=== PATIENT | male | born 1965 | race Caucasian/White ===

== ENCOUNTER 2017-11-24 08:55 | Emergency (ER) | payer MEDICAID ==
[2017-11-24 09:10] VITALS: BP 127/75
[2017-11-24] MEDS ORDERED: Bacitracin Oint 1 GM U/D Packet TOP ONE (09:18)
--- NOTE | 2017-11-24 10:09 | EDM.PDOC ---
ED HPI GENERAL MEDICAL PROBLEM - General Chief Complaint: Laceration Stated Complaint: DOG BITE ON LEFT ARM Time Seen by Provider: 11/24/17 09:30 Source of Information: Reports: Patient History Limitations: Reports: No Limitations - History of Present Illness INITIAL COMMENTS - FREE TEXT/NARRATIVE: 52-year-old male sustained a dog bite to the left arm. No other injury. Onset: Today, Sudden Duration: Hour(s): (Within the last hour) Location: Reports: Upper Extremity, Left Severity: Moderate Associated Symptoms: Reports: No Other Symptoms Left Arm Pain Score (Numeric/FACES): 2 - Related Data Allergies Allergy/AdvReac Type Severity Reaction Status Date / Time No Known Allergies Allergy Verified 11/24/17 09:11 Home Meds: Home Meds Cyclobenzaprine [Flexeril] 10 mg PO BID PRN 08/27/15 [History] Hydrocodone/Acetaminophen [Hydrocodon-Acetaminophn 10-325] 1 tab PO ASDIRECTED PRN 08/27/15 [History] Past Medical History Cardiovascular History: Reports: Hypertension Musculoskeletal History: Reports: Arthritis, Fracture Other Musculoskeletal History: sciatic - Infectious Disease History Infectious Disease History: Reports: Chicken Pox - Past Surgical History HEENT Surgical History: Reports: LASIK Musculoskeletal Surgical History: Reports: Other (See Below) Other Musculoskeletal Surgeries/Procedures:: removed chips out of elbow,. fracture repair of the tibia Social & Family History - Tobacco Use Smoking Status *Q: Light Tobacco Smoker Years of Tobacco use: 40 Packs/Tins Daily: 0.5 - Recreational Drug Use Recreational Drug Use: Yes Recreational Drug Type: Reports: Marijuana/Hashish Recreational Drug Use Frequency: Not Used In Over 6 Months ED ROS GENERAL - Review of Systems Review Of Systems: See Below Constitutional: Denies: Fever Respiratory: Denies: Shortness of Breath GI/Abdominal: Denies: Nausea, Vomiting Neurological: Denies: Headache Psychiatric: Denies: Anxiety ED EXAM, SKIN/RASH Exam: See Below Exam Limited By: No Limitations General Appearance: Alert, No Apparent Distress Respiratory/Chest: No Respiratory Distress Cardiovascular: Regular Rate, Rhythm Extremities: Other (Exam is otherwise limited to the left arm. He has a transverse 7 cm laceration across the flexor surface of the left forearm just distal to the elbow.) Neurological: Alert, Oriented, No Motor/Sensory Deficits, Other (No distal numbness) Psychiatric: Normal Affect, Normal Mood Course - Vital Signs Last Recorded V/S: Last Vital Signs Temp 97.3 F 11/24/17 09:10 Pulse 87 11/24/17 09:10 Resp 18 11/24/17 09:10 BP 127/75 11/24/17 09:10 Pulse Ox 93 L 11/24/17 09:10 - Orders/Labs/Meds Meds: Medications Discontinued Medications Generic Name Dose Route Start Last Admin Trade Name Steve PRN Reason Stop Dose Admin Bacitracin 1 dose 11/24/17 09:18 11/24/17 09:31 Bacitracin Oint 1 Gm TOP 11/24/17 09:19 1 dose ONETIME ONE Administration Lidocaine HCl 5 ml 11/24/17 09:18 11/24/17 09:31 Xylocaine-Mpf 1% INJECT 11/24/17 09:19 5 ml ONETIME ONE Administration - Re-Assessments/Exams Free Text/Narrative Re-Assessment/Exam: 11/24/17 10:05 The wound was anesthetized with 1% lidocaine and thoroughly cleaned with saline. After anesthesia was then explored and found to be deeper than initially thought. The wound actually extends down to the muscle fascia into the muscle. There is no limitation however in the strength or function of the hand area and no ligamentous or nerve injury. After cleaning the wound 4-0 Vicryl sutures were used to close the fascia above the muscle, then 5 additional Vicryl sutures were used to close the subcutaneous tissue. 8 external 4-0 Ethilon sutures were used to close the laceration. Topical bacitracin and a pressure dressing was applied. He was placed on Augmentin 875 mg twice a day for the next 10 days and sutures can be removed in 9 days. Departure - Departure Time of Disposition: 10:15 Disposition: Home, Self-Care 01 Condition: Good Clinical Impression: Laceration of left arm with complication Qualifiers: Encounter type: initial encounter Qualified Code(s): S41.112A - Laceration without foreign body of left upper arm, initial encounter - Discharge Information Instructions: Laceration Care, Adult Referrals: Sony Garcia MD [Primary Care Provider] - Forms: ED Department Discharge Care Plan Goals: Take antibiotic with food twice a day until gone. Keep wound covered and clean while healing, and continue activity as tolerated. Sutures can be removed in 11 days, the morning of December 04. Recheck sooner if concerns of infection or not healing satisfactorily.
== END 2017-11-24 10:16 | disposition home or self-care (01) ==
LOC: JP.ED 08:55
DX: S41.112A Laceration without foreign body of left upper arm, initial encounter (principal); I10 Essential (primary) hypertension; F17.210 Nicotine dependence, cigarettes, uncomplicated; W54.0XXA Bitten by dog, initial encounter
CPT/HCPCS: 12032; 13121; 99283-25

== ENCOUNTER 2019-04-05 19:32 | Emergency (ER) | payer MEDICAID ==
[2019-04-05 19:49] VITALS: BP 146/94; PULSE 124
--- NOTE | 2019-04-05 20:18 | EDM.PDOC ---
ED HPI GENERAL MEDICAL PROBLEM - General Chief Complaint: ENT Problem Stated Complaint: toothache Time Seen by Provider: 04/05/19 20:09 Source of Information: Reports: Patient History Limitations: Reports: No Limitations - History of Present Illness INITIAL COMMENTS - FREE TEXT/NARRATIVE: Patient presents for evaluation of upper jaw/tooth pain and swelling just come on in the last 24?48 hours. He is concerned that he had some type of dental abscess as they have happened before. One of his teeth is severely eroded beneath the gum line but each to on either side of that one as well as the gums in that area are very uncomfortable. He is noticed swelling of his left cheek which developed today as well. He is hoping to get antibiotics initiated so he can follow up with his dentist next week. Onset: Gradual Duration: Day(s): (one), Constant Quality: Reports: Ache, Burning Severity: Moderate Improves with: Reports: None Worsens with: Reports: Eating left tooth Pain Score (Numeric/FACES): 8 - Related Data Allergies Allergy/AdvReac Type Severity Reaction Status Date / Time No Known Allergies Allergy Verified 04/05/19 19:51 Home Meds: Home Meds Cyclobenzaprine [Flexeril] 10 mg PO BID PRN 08/27/15 [History] Hydrocodone/Acetaminophen [Hydrocodon-Acetaminophn 10-325] 1 tab PO QID [History] Past Medical History Cardiovascular History: Reports: Hypertension Musculoskeletal History: Reports: Arthritis, Fracture Other Musculoskeletal History: sciatic - Infectious Disease History Infectious Disease History: Reports: Chicken Pox - Past Surgical History HEENT Surgical History: Reports: LASIK Musculoskeletal Surgical History: Reports: Other (See Below) Other Musculoskeletal Surgeries/Procedures:: removed chips out of elbow,. fracture repair of the tibia Social & Family History - Tobacco Use Smoking Status *Q: Current Every Day Smoker Years of Tobacco use: 46 Packs/Tins Daily: 0.6 - Caffeine Use Caffeine Use: Reports: Coffee, Soda - Alcohol Use Days Per Week of Alcohol Use: 2 Number of Drinks Per Day: 2 Total Drinks Per Week: 4 - Recreational Drug Use Recreational Drug Use: Yes Drug Use in Last 12 Months: Yes Recreational Drug Type: Reports: Marijuana/Hashish Recreational Drug Use Frequency: Weekly ED ROS ENT - Review of Systems Review Of Systems: See Below HEENT: Reports: Dental Pain (Left upper jaw region.) Respiratory: Reports: No Symptoms ED EXAM, ENT - Physical Exam Exam: See Below Exam Limited By: No Limitations Mouth/Throat: Dental Tenderness (There is tenderness involving tooth 8, 9, 10 and associated gingival swelling. Tooth #9 is eroded below the gumline.) Head: Facial Swelling (There is left maxillary facial swelling.) Respiratory/Chest: No Respiratory Distress Course - Vital Signs Last Recorded V/S: Last Vital Signs Temp 36.3 C 04/05/19 19:54 Pulse 124 H 04/05/19 19:54 Resp 24 H 04/05/19 19:54 BP 146/94 H 04/05/19 19:54 Pulse Ox 97 04/05/19 19:54 - Orders/Labs/Meds Meds: Medications Discontinued Medications Generic Name Dose Route Start Last Admin Trade Name Steve PRN Reason Stop Dose Admin Amoxicillin/Clavulanate Potassium 1 tab 04/05/19 20:19 04/05/19 20:29 Augmentin 875 Mg/125 Mg PO 04/05/19 20:20 1 tab ONETIME ONE Administration - Re-Assessments/Exams Free Text/Narrative Re-Assessment/Exam: 04/06/19 02:44 Patient was given one tablet of Augmentin 875/125 mg in the department here. He was also sent with a prescription for amoxicillin 500 mg, 21 tablets. He should use ibuprofen 800 mg 3 times daily regularly. We discussed saltwater mouth rinses. He should contact his usual dentist next Monday or Monday, depending on holiday opening status, to arrange a follow-up visit. If he feels worse in any way, he can return to the emergency department here. Departure - Departure Time of Disposition: 20:21 Disposition: Home, Self-Care 01 Condition: Good Clinical Impression: Dental abscess, Dental caries - Discharge Information *PRESCRIPTION DRUG MONITORING PROGRAM REVIEWED*: Not Applicable *COPY OF PRESCRIPTION DRUG MONITORING REPORT IN PATIENT PRICE: Not Applicable Instructions: Dental Abscess, [id number] Referrals: Sony Garcia MD [Primary Care Provider] - Forms: ED Department Discharge Additional Instructions: Use warm water salt water mouth rinses 4 times a day start antibiotic and complete the prescription. Take ibuprofen 800 mg 3 times a day for pain. Call your dentist next week and arrange a follow-up appointment. If feeling worse in anyway return to the emergency department.
[2019-04-05] MEDS ORDERED: Amoxicillin/Clavulanate K 875-125 MG Tab PO ONE (20:19)
== END 2019-04-05 20:32 | disposition home or self-care (01) ==
LOC: JP.ED 19:32
DX: K04.7 Periapical abscess without sinus (principal); K02.9 Dental caries, unspecified; I10 Essential (primary) hypertension; F17.210 Nicotine dependence, cigarettes, uncomplicated
CPT/HCPCS: 99283; A9270